=== PATIENT | female | born 1980 | race Caucasian/White ===

== ENCOUNTER 2022-01-13 15:00 | Emergency (ER) | payer SELFPAY ==
[~2022-01-13 15:00] MED LIST: Percocet 325 MG1 TAB PO
[2022-01-13 15:12] VITALS: BP 138/79
[2022-01-13] MEDS ORDERED: IBUPROFEN600 MG PO (17:31)
== END 2022-01-13 17:47 | disposition home or self-care (01) ==
LOC: ED 15:00
DX: S83.91XA Sprain of unspecified site of right knee, initial encounter (principal); Z90.49 Acquired absence of other specified parts of digestive tract; Z90.710 Acquired absence of both cervix and uterus; Z98.51 Tubal ligation status; X58.XXXA Exposure to other specified factors, initial encounter; Y93.89 Activity, other specified; Y92.89 Other specified places as the place of occurrence of the external cause; Y99.8 Other external cause status